=== PATIENT | female | born 1935 | race Caucasian/White ===

== ENCOUNTER 2017-07-02 21:48 | Observation (INO) | payer OTHER ==
[~2017-07-02] VITALS: Ht 152.4 cm; Wt 62.2 kg
[2017-07-02 22:30] LABS: BLOOD UREA NITROGEN 21 mg/dL (7-18)
[2017-07-02] MEDS ORDERED: SODIUM CHLORIDE FLUSH 10ML SYR IVF ONE (22:30)
[2017-07-02 22:37] LABS: ASPARTATE AMINO TRANSFERASE 54 U/L (15-37); IS PT STATUS REG ER OR PRE ER? YES
[2017-07-02 22:39] LABS: HEMATOCRIT 39.7 % (34.6-47.8); HEMOGLOBIN 13.4 g/dL (11.7-16.4); WHITE BLOOD COUNT 7.6 x10^3/uL (3.4-10)
[2017-07-02] MEDS ORDERED: ASPIRIN 325 MG TABLET PO ONE (23:00)
[2017-07-02] MEDS ORDERED: ASPIRIN 325 MG TABLET ONE (23:18)
[2017-07-03] VITALS (7 sets, daily range): BP systolic 119–189; BP diastolic 52–100
[2017-07-03] MEDS ORDERED: LABETALOL 5MG/ML, 20ML IVPush PRN (04:30)
[2017-07-03] MEDS ORDERED: NITROGLYCERIN 0.4 MG BOTTLE (25 TABS) SL PRN (04:30)
[2017-07-03] MEDS ORDERED: TEMAZEPAM 15 MG CAPSULE PO PRN (04:30)
[2017-07-03] MEDS ORDERED: ACETAMINOPHEN 325 MG TABLET PO PRN (04:30)
[2017-07-03] MEDS ORDERED: ENALAPRILAT 1.25 MG/ML, 2ML IVPush PRN (04:30)
[2017-07-03] MEDS ORDERED: ONDANSETRON 2MG/ML, 2ML IVPush PRN (04:30)
[2017-07-03] MEDS ORDERED: morphine SULFATE 10 MG/ML, 1ML IVPush PRN (04:30)
[2017-07-03 06:01] LABS: IS PT STATUS REG ER OR PRE ER? NO
[2017-07-03] MEDS: METOPROLOL TARTRATE 25 MG TABLET PO SCH ×2 (06:14→18:04)
[2017-07-03] MEDS: INSULIN ASPART 100 UNITS/ML, PEN SQ-INSULIN SCH ×4 (07:00→20:28)
[2017-07-03] MEDS: CLOPIDOGREL 75 MG TABLET PO SCH (08:27)
[2017-07-03] MEDS: FAMOTIDINE 20 MG/2 ML IVPush SCH ×2 (08:27→22:23)
[2017-07-03] MEDS ORDERED: REGADENOSON 0.4 MG/5 ML SYRINGE ONE (08:37)
[2017-07-03] MEDS ORDERED: LISINOPRIL 10 MG TABLET PO SCH (09:00)
[2017-07-03 12:21] LABS: BLOOD UREA NITROGEN 16 mg/dL (7-18)
[2017-07-03 12:26] LABS: ASPARTATE AMINO TRANSFERASE 27 U/L (15-37)
[2017-07-03 12:28] LABS: IS PT STATUS REG ER OR PRE ER? NO
[2017-07-03] MEDS ORDERED: hydrALAzine 20 MG/ML, 1ML IV PRN (13:30)
[2017-07-03] MEDS ORDERED: LISINOPRIL 10 MG TABLET PO ONE (13:30)
[2017-07-03] MEDS: metFORMIN 500 MG TABLET PO SCH (16:01)
[2017-07-03] MEDS ORDERED: ATORVASTATIN 40 MG TABLET PO SCH (21:00)
[2017-07-04 02:05] VITALS: BP 132/51
[2017-07-04] MEDS: METOPROLOL TARTRATE 25 MG TABLET PO SCH (08:00)
[2017-07-04 08:15] VITALS: BP 116/74
[2017-07-04] MEDS ORDERED: LISINOPRIL 20 MG TABLET PO SCH (09:00)
[2017-07-04] MEDS: CLOPIDOGREL 75 MG TABLET PO SCH (09:46)
[2017-07-04] MEDS: FAMOTIDINE 20 MG/2 ML IVPush SCH (09:47)
[2017-07-04] MEDS: metFORMIN 500 MG TABLET PO SCH (09:48)
[2017-07-04] MEDS: INSULIN ASPART 100 UNITS/ML, PEN SQ-INSULIN SCH ×2 (09:49→11:00)
[2017-07-04] MEDS ORDERED: ATOR10TA9 PO (12:41)
[2017-07-04] MEDS ORDERED: METO25TA35 PO (12:41)
[2017-07-04] MEDS ORDERED: METF500T PO (12:41)
[2017-07-04] MEDS ORDERED: CLOP75TA PO (12:41)
[2017-07-04] MEDS ORDERED: LISI-167 PO (12:41)
[2017-07-04] MEDS ORDERED: PNEUMOCOCCAL 23 VACCINE IM-VACC ONE (15:30)
[2017-07-04] MEDS ORDERED: ATORVASTATIN 10 MG TABLET PO SCH (21:00)
[2017-07-05] MEDS ORDERED: METOPROLOL TARTRATE 25 MG TABLET PO SCH (09:00)
== END 2017-07-04 15:50 | disposition home or self-care (01) ==
LOC: ED 22:42 → INTOOBSV 23:53 → EDIP 23:53 → 5SO 07-03 00:27 → DCLOUNGE 07-04 15:30
PROVIDERS: ADMIT Internal Medicine; ATTEND Internal Medicine
DX: R07.89 Other chest pain (principal); I10 Essential (primary) hypertension; E11.65 Type 2 diabetes mellitus with hyperglycemia; E66.9 Obesity, unspecified; R94.31 Abnormal electrocardiogram [ECG] [EKG]; Z82.49 Family history of ischemic heart disease and other diseases of the circulatory system; Z88.6 Allergy status to analgesic agent; Z87.891 Personal history of nicotine dependence; Z79.82 Long term (current) use of aspirin; Z23 Encounter for immunization
CPT/HCPCS: 36415; 71010; 78452; 80053; 80061; 82962; 83036; 83735; 83880; 84100; 84439; 84443; 84484; 85025; 90471; 90732; 93005; 93017; 96372; 96374; 96375; 96376; 99285; A9502; C9898; G0378; J1815; J2785; S0028